=== PATIENT | female | born 1935 | race Caucasian/White ===

== ENCOUNTER → 2021-05-26 09:51 | Outpatient (CLI) | payer MEDICARE, OTHER, SELFPAY ==
--- NOTE | 2021-05-26 09:56 | DI.RAD.S_ITS ---
PROCEDURE: XR LUMBAR SPINE MIN 4V INDICATIONS: BACK PAIN TECHNIQUE: 5 views of the lumbar spine were acquired, including bilateral oblique views. COMPARISON: Outside Facility, RG, MRI L-SPINE W/O CONTRAST, 02/27/2021, 12:19. FINDINGS: Bones: There are 5 [id number] lumbar vertebral bodies. Moderate compression deformity at L1 with approximately 40% vertebral body height loss is unchanged from the study dated February 27, 2021. No new compression deformities. As before, there is grade 1 L1 on L2 and L2 on L3 retrolisthesis and L4 on L5 anterolisthesis. There is diffuse intervertebral disc space narrowing and severe facet sclerosis at L5-S1. Soft tissues: Overlying bowel gas pattern is normal. No suspicious soft tissue calcifications. Scattered atheromatous calcifications are present throughout the abdominal aorta. Oblique images: There are likely minimally displaced L5-S1 pars interarticularis defects. These are difficult to characterize on oblique views given degenerative changes. IMPRESSION: 1. Degenerative change and compression deformity at L1 unchanged from February 27, 2021. 2. Minimally displaced bilateral pars interarticularis defects. 3. Aortic atherosclerosis. Dictated by: Marina Gan M.D. on 05/26/2021 at 10:13 Approved by: Marina Gan M.D. on 05/26/2021 at 10:17
== END ==
PROVIDERS: Family Provider Naturopath; PCP Naturopath; Referring Provider Physical Medicine & Rehabilitation; Visit Provider Physical Medicine & Rehabilitation
DX: M47.816 Spondylosis without myelopathy or radiculopathy, lumbar region (principal); S32.010A Wedge compression fracture of first lumbar vertebra, initial encounter for closed fracture; M43.16 Spondylolisthesis, lumbar region; I70.0 Atherosclerosis of aorta; M54.9 Dorsalgia, unspecified; Z96.651 Presence of right artificial knee joint
CPT/HCPCS: 72110; 99215

== ENCOUNTER → 2021-07-07 11:51 | Outpatient (CLI) | payer MEDICARE, OTHER, SELFPAY ==
--- NOTE | 2021-07-07 11:53 | DI.RAD.S_ITS ---
PROCEDURE: XR THORACIC SPINE 3V INDICATIONS: Thoracic Fx TECHNIQUE: 3 views of the thoracic spine were acquired. COMPARISON: [facility], CR, XR LUMBAR SPINE MIN 4V, 05/26/2021, 9:46. Outside Facility, RG, MRI L-SPINE W/O CONTRAST, 02/27/2021, 12:19. FINDINGS: Bones: Slight interval increased compression deformity of L1. The remaining vertebral body heights are maintained. Soft tissues: No paravertebral stripe thickening. IMPRESSION: Slight interval increased compression deformity of L1. Dictated by: Go Light M.D. on 07/07/2021 at 15:15 Approved by: Go Light M.D. on 07/07/2021 at 15:18
== END ==
PROVIDERS: Family Provider Naturopath; PCP Naturopath; Referring Provider Physical Medicine & Rehabilitation; Visit Provider Physical Medicine & Rehabilitation
DX: S32.010A Wedge compression fracture of first lumbar vertebra, initial encounter for closed fracture (principal)
CPT/HCPCS: 72072

== ENCOUNTER → 2021-07-28 10:51 | Outpatient (CLI) | payer MEDICARE, OTHER, SELFPAY ==
--- NOTE | 2021-07-28 10:53 | DI.RAD.S_ITS ---
PROCEDURE: XR LUMBAR SPINE 2-3V INDICATIONS: L1 fracture follow-up TECHNIQUE: 3 views of the lumbar spine were acquired. COMPARISON: Outside Facility, RG, MRI L-SPINE W/O CONTRAST, 02/27/2021, 12:19. [facility], CR, XR LUMBAR SPINE MIN 4V, 05/26/2021, 9:46. FINDINGS: Bones: There are 5 [id number] lumbar vertebral bodies. Compression deformity is redemonstrated at L1 and appears similar in extent to the study dated May 26, 2021 and the MRI dated February 27, 2021. As before, there is grade 1 L4 on L5 and L5 on S1 anterolisthesis. No new compression deformities. Degenerative changes are present throughout the lumbar spine including intervertebral disc space narrowing, endplate sclerosis, and facet sclerosis. Soft tissues: Overlying bowel gas pattern is normal. Scattered atheromatous calcifications are redemonstrated throughout the abdominal aorta. IMPRESSION: Stable L1 compression deformity. Stable spondylolisthesis and degenerative change. Dictated by: Marina Gan M.D. on 07/28/2021 at 11:36 Approved by: Marina Gan M.D. on 07/28/2021 at 11:38
== END ==
PROVIDERS: Family Provider Naturopath; PCP Naturopath; Referring Provider Physical Medicine & Rehabilitation; Visit Provider Physical Medicine & Rehabilitation
DX: S32.010A Wedge compression fracture of first lumbar vertebra, initial encounter for closed fracture (principal); M43.16 Spondylolisthesis, lumbar region; M43.17 Spondylolisthesis, lumbosacral region; M47.816 Spondylosis without myelopathy or radiculopathy, lumbar region; Z96.651 Presence of right artificial knee joint
CPT/HCPCS: 72100; 99215

== ENCOUNTER → 2022-09-14 08:18 | Outpatient (CLI) | payer MEDICARE, OTHER, SELFPAY ==
--- NOTE | 2022-09-14 08:20 | DI.RAD.S_ITS ---
PROCEDURE: XR LUMBAR SPINE MIN 4V INDICATIONS: BACK PAIN TECHNIQUE: 5 views of the lumbar spine were acquired, including bilateral oblique views. COMPARISON: [facility], , XR LUMBAR SPINE 2-3V, 07/28/2021, 10:49. FINDINGS: Bones: 5 nonrib-bearing vertebrae are present. There is 4 mm retrolisthesis of L2 on L3 and L1 on L2. 7 mm anterolisthesis of L4 on L5 and 3 mm anterolisthesis of L5 on S1 is also noted. No acute compression fracture. Chronic appearing anterior wedge compression deformity at L1 level is again seen unchanged from prior study. Degenerative endplate changes are noted throughout lumbar spine. No suspicious bony lesions. Soft tissues: Overlying bowel gas pattern is normal. No suspicious soft tissue calcifications. Oblique images: No pars defects. IMPRESSION: 1. Likely degenerative spondylolisthesis throughout lumbar spine as described above. No acute compression fracture. Degenerative disc disease throughout lumbar spine. Chronic appearing anterior wedge compression deformity at L1 level unchanged from prior study. 2. No gross pars defects. Dictated by: Eleazar De La Garza M.D. on 09/14/2022 at 9:16 Approved by: Eleazar De La Garza M.D. on 09/14/2022 at 9:18
--- NOTE | 2022-09-14 08:20 | DI.RAD.S_ITS ---
PROCEDURE: XR THORACIC SPINE 3V INDICATIONS: RIB PAIN TECHNIQUE: 3 views of the thoracic spine were acquired. COMPARISON: [facility], CR, XR THORACIC SPINE 3V, 07/07/2021, 12:02. FINDINGS: Bones: No acute fractures or dislocations. Chronic moderate L1 compression fracture does not appear significantly changed when compared to the radiographs from 07/07/2021. Generalized osteopenia. Mild levoconvex curvature of the lower lumbar spine. No suspicious bony lesions. 12 pairs of ribs are noted including rudimentary ribs at T12, and appear intact where visualized. Soft tissues: No paravertebral stripe thickening. IMPRESSION: 1. Unchanged chronic L1 compression fracture. 2. No acute osseous abnormality. If the symptoms persist, consider cross sectional imaging such as MRI or CT for further assessment. Approved by: Douglas Martinez M.D. on 09/14/2022 at 10:54
== END ==
PROVIDERS: Family Provider Naturopath; PCP Naturopath; Referring Provider Physical Medicine & Rehabilitation; Visit Provider Physical Medicine & Rehabilitation
DX: S32.010A Wedge compression fracture of first lumbar vertebra, initial encounter for closed fracture (principal); R07.81 Pleurodynia; M43.16 Spondylolisthesis, lumbar region; M51.16 Intervertebral disc disorders with radiculopathy, lumbar region; M41.25 Other idiopathic scoliosis, thoracolumbar region; Z96.651 Presence of right artificial knee joint
CPT/HCPCS: 72072; 72110; 99214

== ENCOUNTER → 2023-10-13 12:56 | Outpatient (CLI) | payer MEDICARE, OTHER, SELFPAY ==
--- NOTE | 2023-10-13 12:59 | DI.MRI.S_ITS ---
PROCEDURE: MR LUMBAR SPINE WO CON INDICATIONS: WEDGE COMPRESSION FX TECHNIQUE: Noncontrast sagittal T1 spin echo and T2 fast echo, sagittal STIR, and T2 fast spin echo through the lumbar spine. In cases with scoliosis, additional coronal T2 fast spin echo may be performed. COMPARISON: Outside Film, CR, XR LUMBAR SPINE 2 OR 3 VIEWS, 09/12/2023, 14:04. Outside Film, CR, XR THORACIC SPINE 3 VIEWS, 09/12/2023, 14:04. Outside Film, CT, CT ABDOMEN PELVIS WITH CONTRAST, 08/14/2023, 20:32. FINDINGS: Image quality: Excellent. Alignment and Curvature: There is minimal levoconvex scoliotic curvature. There is minimal retrolisthesis seen at L1-L2, with minimal anterolisthesis at L4-L5 and at L5-S1. Bone Marrow: Marrow is of normal overall signal. At the T11 level, there is a significant central compression deformity seen, with 70% loss of height centrally. Posterior displacement fracture fragments can be seen, measuring 2 mm. This fracture is progressed compared to the 08/14/2023 examination. There is abnormal STIR signal seen within this vertebral body to suggest an acute fracture. Chronic fractures can be seen at L1, L2, and L3, without significant change compared to the prior and without abnormal STIR signal seen to suggest acute fractures. Within the L5 vertebral body, there is a bone marrow focus seen that is hyperintense on T1 weighted imaging and on T2 weighted imaging, without increased STIR signal, which is attributed to a benign vertebral body hemangioma. Spinal Cord: Conus medullaris terminates at the L1-L2 level. Visualized cord demonstrates normal signal and size. Paraspinous Soft Tissues: No paravertebral masses. There is a water signal cyst seen involving the lateral right kidney, measuring nearly 6 cm. T12-L1: Normal appearance. L1-L2: Mild loss of disc height is seen. Loss of disc signal is seen. Mild to moderate disc bulge is seen. Mild facet joint hypertrophy is seen. At least moderate bilateral neural foraminal narrowing can be seen. Mild central canal narrowing is seen. L2-L3: The disc height is well-preserved. Loss of disc signal is seen at this level. Mild generalized disc bulge is seen. Mild facet joint hypertrophy is seen. No significant neural foraminal or central canal narrowing can be seen. L3-L4: Mild loss of disc height is seen. Loss of disc signal is seen. Mild generalized disc bulge is seen. There is a superimposed central disc protrusion. Mild to moderate facet hypertrophy can be seen. There is moderate right-sided and mild left-sided neural foraminal narrowing. Mild central canal narrowing is seen. L4-L5: Mild loss of disc height is seen. Loss of disc signal is seen. Moderate disc bulge is seen, which is eccentric to the right. There is at least moderate right-sided and moderate left-sided facet hypertrophy. There is at least moderate right-sided and mild left-sided neural foraminal narrowing. Mild central canal narrowing is seen. L5-S1: [id number] loss of disc height and disc signal can be seen. Moderate disc bulge is seen, which is eccentric to the left. Moderate to prominent facet hypertrophy can be seen at this level. Moderate bilateral neural foraminal narrowing can be seen, left worse than right. Mild central canal narrowing is seen. IMPRESSION: There is a subacute fracture of T11, which is worse than on the recent prior outside CT. 2 mm posterior displacement of fracture fragments can be seen. Multiple levels of significant lumbar spine degenerative change can be seen. Minimal levoconvex scoliotic curvature can be seen. Additional findings: Water signal right renal cyst Dictated by: Scott Miller M.D. on 10/13/2023 at 15:44 Approved by: Scott Miller M.D. on 10/13/2023 at 15:51
== END ==
PROVIDERS: Family Provider Naturopath; PCP Naturopath; Referring Provider Orthopaedic Surgery Orthopaedic Surgery of the Spine; Visit Provider Orthopaedic Surgery Orthopaedic Surgery of the Spine
DX: S22.080A Wedge compression fracture of T11-T12 vertebra, initial encounter for closed fracture (principal); S32.010A Wedge compression fracture of first lumbar vertebra, initial encounter for closed fracture; S32.020A Wedge compression fracture of second lumbar vertebra, initial encounter for closed fracture; M47.816 Spondylosis without myelopathy or radiculopathy, lumbar region; M47.817 Spondylosis without myelopathy or radiculopathy, lumbosacral region; M41.9 Scoliosis, unspecified; N28.1 Cyst of kidney, acquired
CPT/HCPCS: 72148

== ENCOUNTER → 2023-10-23 12:50 | Outpatient (CLI) | payer MEDICARE, OTHER, SELFPAY ==
--- NOTE | 2023-10-23 14:00 | DI.MRI.S_ITS ---
PROCEDURE: MR THORACIC SPINE WO CON INDICATIONS: CLOSED COMPRESSION FX TECHNIQUE: Noncontrast sagittal T1 spine echo and T2 fast spin echo, sagittal STIR, and T2 fast spin echo through the thoracic spine. COMPARISON: Outside Film, CR, XR THORACIC SPINE 3 VIEWS, 09/12/2023, 14:04. Outside Facility, RG, CT T AND L SPINE WO CONTRAST, 07/27/2023, 18:12. FINDINGS: Image quality: Excellent. Alignment and Curvature: Trace retrolisthesis T12 on L1. Otherwise no subluxation. Bone Marrow: There is a severe compression fracture of T10 demonstrating diffuse osseous edema in the vertebral body. There is roughly 4 mm of retropulsion of the posterior cortex into the central canal which minimally flattens the cord shape but does not alter the cord signal. There is a chronic superior endplate scalloping deformity of T12. In addition, there are moderate type 1 acute Modic changes of superior endplate L1 surrounding a Schmorl's node and underlying mild scalloping deformity of the vertebral body. Spinal Cord: Minimal cord flattening at the T10 level. Normal cord signal. The conus terminates at L1. Paraspinous Soft Tissues: Large simple appearing right renal cyst. No other suspicious paraspinal soft tissue findings. Miscellaneous: On axial images, central canal and foramina appear widely patent at all scanned levels. IMPRESSION: Acute, severe T10 compression fracture with 4 mm of posterior cortex retropulsion, but no significant central canal compromise. Chronic mild superior endplate scalloping of T12, presumably remote osteoporotic fracture. Acute appearing type 1 Modic changes, Schmorl's node deformity, and mild superior endplate compression of L1. This may contribute to lower back pain. Dictated by: Keyla Tidwell M.D. on 10/23/2023 at 21:45 Approved by: Keyla Tidwell M.D. on 10/23/2023 at 21:52
== END ==
LOC: MRI 12:52
PROVIDERS: Family Provider Naturopath; PCP Naturopath; Referring Provider Orthopaedic Surgery Orthopaedic Surgery of the Spine; Visit Provider Orthopaedic Surgery Orthopaedic Surgery of the Spine
DX: M48.54XA Collapsed vertebra, not elsewhere classified, thoracic region, initial encounter for fracture (principal); S32.010A Wedge compression fracture of first lumbar vertebra, initial encounter for closed fracture; S32.020A Wedge compression fracture of second lumbar vertebra, initial encounter for closed fracture; N28.1 Cyst of kidney, acquired
CPT/HCPCS: 72146